=== PATIENT | female | born 1965 | race Asian ===

== ENCOUNTER 2018-04-16 04:07 | Emergency (ER) | payer OTHER ==
[2018-04-16] MEDS ORDERED: Albuterol Sulfate 2.5 mg/0.5 ml Neb ONE (05:45)
[2018-04-16] MEDS ORDERED: predniSONE 20 MG TAB ONE (05:46)
--- NOTE | 2018-04-16 08:55 | RAD ---
TWO VIEW CHEST: History: Cough, wheezing. Comparison: 03-14-18 FINDINGS: The lung aldana are clear. Heart and mediastinum unremarkable. Osseous structures unremarkable. IMPRESSION: Unremarkable chest. POS: [facility]
== END 2018-04-16 06:24 | disposition home or self-care (01) ==
LOC: SCSER 04:07
DX: J45.909 Unspecified asthma, uncomplicated (principal)
CPT/HCPCS: 71046; 93005; 94640; J7506; J7611; J7620

== ENCOUNTER 2018-06-04 10:41 | Outpatient (CLI) | payer OTHER | END 2018-06-04 10:42 | disposition home or self-care (01) | LOC: BICMAMMO 10:41 | PROVIDERS: ATTEND Family Medicine | DX: Z12.31 Encounter for screening mammogram for malignant neoplasm of breast (principal) | CPT/HCPCS: 77063; 77067 ==

== ENCOUNTER 2018-09-17 14:18 | Outpatient (CLI) | payer OTHER ==
[2018-09-17 14:51] LABS: Bilirubin Negative (Negative); Blood, Urine Negative (Negative); Clarity Clear (Clear); Glucose, Urine (Dipstick) Negative (Negative); Leukocyte Trace (Negative); Nitrite Negative (Negative); Protein, Urine (Dipstick) Negative (Neg-Trace); Urobilinogen 0.2 mg/dL (0.2-1.0)
[2018-09-17 14:57] LABS: Bacteria/HPF Rare-Few HPF (None Seen); RBC/HPF None Seen HPF (0-3); WBC/HPF 0-3 HPF (0-3)
[2018-09-17 15:00] LABS: Band 1 % (5-11); Eosinophils 23 % (0-10); Hemoglobin 13.3 g/dL (12.0-16.0); Lymphocytes 36 % (21-51); MDiff Complete? YES; Mean Corpuscular HGB CONC 32.8 g/dL (32.0-36.0); Mean Corpuscular Hemoglobin 29.1 pg (27.0-31.0); Mean Corpuscular Volume 88.8 fL (78.0-98.0); Mean Platelet Volume 9.2 fL (7.4-10.4); Monocytes 4 % (0-10); Neutrophil 35 % (42-75); Platelet Count 204 thou/uL (130-400); Platelet Morphology Comment Appears Adequate; RBC Distribution Width 11.9 % (11.5-14.5); RBC Morphology Normal; Red Blood Cell (RBC) Count 4.57 mill/uL (4.20-5.40)
[2018-09-17 15:01] LABS: ALT (SGPT) 13 U/L (8-55); AST (SGOT) 17 U/L (5-34); Albumin 4.1 g/dL (3.5-5.0); Alkaline Phosphatase 58 U/L (40-150); Anion Gap 11 mmol/L (10-20); BUN (Urea Nitrogen) 14 mg/dL (9.8-20.1); Bilirubin, Total 0.6 mg/dL (0.2-1.2); Calc. Creatinine Clearance 0 mL/min (70-130); Calcium 9.9 mg/dL (7.8-10.44); Carbon Dioxide 29 mmol/L (22-29); Cardiac Risk 3.6 (Less than 4.5); Chloride 106 mmol/L (98-107); Cholesterol 206 mg/dl (< 200 Desired); Estimated GFR-MDRD 68; Globulin 3.8 g/dL (2.4-3.5); Glucose 86 mg/dL (70-105); HDL Cholesterol 57 mg/dL (>60 Neg Risk); LDL Cholesterol, Calculated 125 mg/dL; Potassium 4.4 mmol/L (3.5-5.1); Protein, Total 7.9 g/dL (6.0-8.3); Sodium 142 mmol/L (136-145); Triglycerides 122 mg/dL (Less than 150)
--- NOTE | 2018-09-17 16:03 | RAD ---
TWO VIEWS OF THE CHEST: Comparison: 04-16-18 History: Cough and wheezing for six months. FINDINGS: Two views of the chest show normal sized cardiomediastinal silhouette. There is no evidence of consol idation, mass, or pleural effusion. The bones are unremarkable. IMPRESSION: No evidence of acute cardiopulmonary disease. POS: [facility]
== END 2018-09-17 14:19 | disposition home or self-care (01) ==
LOC: SCSRAD 14:18
PROVIDERS: ATTEND Family Medicine
DX: J20.9 Acute bronchitis, unspecified (principal); Z00.00 Encounter for general adult medical examination without abnormal findings
CPT/HCPCS: 36415; 71046; 80053; 80061; 81001; 84443; 85025

== ENCOUNTER 2018-10-29 07:36 | Outpatient (CLI) | payer OTHER | END 2018-10-29 07:37 | disposition home or self-care (01) | LOC: CP 07:36 | PROVIDERS: ATTEND Specialist | DX: R06.2 Wheezing (principal) | CPT/HCPCS: 94060; 94727 ==

== ENCOUNTER 2018-12-13 06:56 | Day surgery (SDC) | payer OTHER ==
[2018-12-12 10:59] VITALS: BMI 23.8
--- NOTE | 2018-12-13 09:01 | HP ---
REASON FOR VISIT: This is a 52-year-old Marshallese female referred to me by Dr. Arreguin for abdominal pain, anorexia, and weight loss. The patient was seen by me a year ago because of acid reflux and dysphagia. She also had severe allergic rhinitis and nasal congestion. The patient was placed on omeprazole and also systemic steroids. Subsequently, her symptoms resolved. She also had a colonoscopy for cancer screening at that time, but the patient did not come back to me. The patient comes again now. She has lost quite a bit of weight, nearly 20 pounds. Her appetite is very poor. She also complains of vague abdominal pain. There is no dysphagia or odynophagia. The patient comes for an EGD and a colonoscopy because of the abdominal pain, weight loss, and also for colon cancer screening. ALLERGIES: NONE. MEDICAL ILLNESSES: 1. Allergic rhinitis. 2. Anxiety and depression. SOCIAL HISTORY: The patient does not smoke or drink alcohol. PHYSICAL EXAMINATION: VITAL SIGNS: Pulse is 70, blood pressure 100/70. HEENT: Conjunctivae clear. NECK: Supple. No adenitis or thyromegaly noted. CARDIOVASCULAR: First and second heart sounds normal. LUNGS: Clear to auscultation. ABDOMEN: Soft. Abdomen is mildly tender over the epigastric area. There is no rebound or guarding. Bowel sounds normal. ADMITTING DIAGNOSES: 1. Abdominal pain. 2. Anorexia. 3. Weight loss. PLAN: EGD and colonoscopy. Job ID: [id number] [facility]
--- NOTE | 2018-12-13 11:01 | OP ---
DATE OF PROCEDURE: 12/13/2018 OPERATIVE PROCEDURES: 1. Esophagogastroduodenoscopy with biopsy. 2. Esophageal dilation with a 46-[place] Car[place]o dilator. PREOPERATIVE DIAGNOSES: Chronic acid reflux, chronic dysphagia, anorexia, and weight loss. POSTOPERATIVE DIAGNOSES: 1. Esophageal ring at the mid esophagus, not obstructing. 2. Normal esophageal mucosa. 3. Normal stomach and duodenum. DESCRIPTION OF PROCEDURE: The patient was placed on her left lateral position and was given sedation by Anesthesia Department. A Pentax videogastroscope under direct vision passed down the oropharynx, past the GE junction into the stomach and subsequently into the descending duodenum. The esophageal mucosa actually appears normal throughout. There is a small esophageal ring which was not obstructing at the mid esophagus. The GE junction, no pathology seen. The fundus and cardia, gastric body, gastric antrum, no pathology seen. The duodenal bulb and descending duodenum, no pathology. Biopsy obtained of the gastric antrum and gastric body. The stomach decompressed and scope removed. A 46-[place] Car[place]o dilator passed down with no resistance. DISCHARGE PLANS: A 52-year-old [place] female referred to me by Dr. Arreguin because of acid reflux, dyspepsia, anorexia, weight loss, etc. The EGD showed no pathology. The colonoscopy was again negative. DISCHARGE RECOMMENDATION: 1. The patient does call me if she develops abdominal pain or hematochezia. 2. Will come back to clinic in 2 weeks. We will plan to start patient on possibly Remeron 15 mg p.o. at bedtime to see whether it helps her with anorexia. If her symptoms persists, we will consider abdomen CAT scan. Job ID: [id number]
--- NOTE | 2018-12-13 16:38 | OP ---
DATE OF PROCEDURE: 12/13/2018 PROCEDURE PERFORMED: Colonoscopy. PREOPERATIVE DIAGNOSIS: A 52-year-old [place]i female undergoing colonoscopy for colon cancer screening. POSTOPERATIVE DIAGNOSIS: Normal colonoscopy. DESCRIPTION OF PROCEDURE: The patient was placed on her left lateral position and was given sedation by Anesthesia Department. A rectal exam was done before the scope was advanced into the rectum. No lesions felt on rectal exam. A Pentax video colonoscope was introduced into the rectum and advanced up to the cecum. The mucosa appears normal throughout the colon with normal vascular pattern. The appendiceal orifice, ileocecal wall, and cecum, no pathology seen. Withdrawal of the scope from the cecum to ascending colon, hepatic flexure, no pathology seen. The transverse colon, splenic flexure, descending colon, sigmoid colon, and rectum, no pathology seen. Job ID: [id number]
== END 2018-12-13 11:30 | disposition home or self-care (01) ==
LOC: SDC 06:56
PROVIDERS: ATTEND Internal Medicine Gastroenterology
PROC: 0DJD8ZZ Inspection of Lower Intestinal Tract, Via Natural or Artificial Opening Endoscopic (ICD-10-PCS; principal; 2018-12-13)
PROC: 0DB68ZX Excision of Stomach, Via Natural or Artificial Opening Endoscopic, Diagnostic (ICD-10-PCS; principal; 2018-12-13)
PROC: 0D757ZZ Dilation of Esophagus, Via Natural or Artificial Opening (ICD-10-PCS; principal; 2018-12-13)
DX: Z12.11 Encounter for screening for malignant neoplasm of colon (principal); K22.2 Esophageal obstruction; K21.9 Gastro-esophageal reflux disease without esophagitis; R13.10 Dysphagia, unspecified; R63.0 Anorexia; R63.4 Abnormal weight loss; Z68.23 Body mass index [BMI] 23.0-23.9, adult; F41.8 Other specified anxiety disorders; F32.9 Major depressive disorder, single episode, unspecified; J30.9 Allergic rhinitis, unspecified
CPT/HCPCS: 88305; 88312